=== PATIENT | male | born 1980 | race Native Hawaiian/Other Pacific Islander ===

== ENCOUNTER 2018-09-05 07:31 | Emergency (ER) | payer OTHER ==
[~2018-09-05] VITALS: Ht 170.2 cm; Wt 83.9 kg
[2018-09-05 08:14] LABS: PLATELET COUNT 174 K/uL (142-355)
[2018-09-05 08:39] LABS: SODIUM 141 mmol/L (136-145)
[2018-09-05 09:16] VITALS: BP 112/76; TEMP 98.1
== END 2018-09-05 09:20 | disposition home or self-care (01) ==
LOC: ED 07:31
PROVIDERS: Emergency Medicine
DX: R07.89 Other chest pain (principal)
CPT/HCPCS: 36415; 80053; 82150; 82550; 82553; 83690; 84484; 85027; 93005; 99283

== ENCOUNTER 2020-07-20 21:40 | Emergency (ER) | payer OTHER ==
[~2020-07-20] VITALS: Ht 170.2 cm; Wt 83.9 kg
[2020-07-20 23:37] VITALS: BP 140/92
== END 2020-07-20 23:37 | disposition home or self-care (01) ==
LOC: ED 21:40
DX: S05.02XA Injury of conjunctiva and corneal abrasion without foreign body, left eye, initial encounter (principal); S05.01XA Injury of conjunctiva and corneal abrasion without foreign body, right eye, initial encounter; W89.8XXA Exposure to other man-made visible and ultraviolet light, initial encounter; Y92.89 Other specified places as the place of occurrence of the external cause
CPT/HCPCS: 99283

== ENCOUNTER 2023-01-22 13:37 | Emergency (ER) | payer OTHER ==
[~2023-01-22] VITALS: Ht 170.2 cm; Wt 86.2 kg
[2023-01-22 13:37] VITALS: TEMP 98
[~2023-01-22 13:37] MED LIST: ASA LOW DOSE81 MG PO; CLOP75TA2 PO; HYDR5TAB9 PO; KETO10TA34 PO; LEVAQUIN250 MG PO; LIPITOR40 MG PO; METO50TA63 PO; NITR0.4S2 SL; PANTOPRAZOLE 40MG TA PO
[2023-01-22 14:21] LABS: PLATELET COUNT 203 K/uL (142-355)
[2023-01-22 14:24] LABS: POTASSIUM 3.9 mmol/L (3.6-5.2); SODIUM 139 mmol/L (136-145)
[2023-01-22 14:31] LABS: PARTIAL THROMBOPLASTIN TIME 25.2 SECONDS (23.9-36.7)
[2023-01-22 17:31] VITALS: BP 126/78
== END 2023-01-22 17:31 | disposition home or self-care (01) ==
LOC: ED 13:37
PROVIDERS: Emergency Medicine Emergency Medical Services
DX: R07.9 Chest pain, unspecified (principal); F17.210 Nicotine dependence, cigarettes, uncomplicated; I25.10 Atherosclerotic heart disease of native coronary artery without angina pectoris
CPT/HCPCS: 36415; 80053; 83735; 84484; 85027; 85379; 85610; 85730; 93005; 96361; 96365; 96374; 96375; 99284; J2270; J2405